=== PATIENT | female | born 1995 | race African-American/Black ===

== ENCOUNTER 2022-08-06 14:34 | Emergency (ER) | payer MEDICAID, OTHER ==
[~2022-08-06] VITALS: Ht 162.6 cm; Wt 80.0 kg
[~2022-08-06 14:34] MED LIST: PREN-88 PO
[2022-08-06 14:36] VITALS: BP 112/60
[2022-08-07] MEDS ORDERED: CEPH500C2 MT (11:20)
== END 2022-08-06 16:23 | disposition home or self-care (01) ==
LOC: ER 14:34
DX: Z04.89 Encounter for examination and observation for other specified reasons (principal)
CPT/HCPCS: 99283; Z7610

== ENCOUNTER 2022-08-06 17:39 | Emergency (ER) | payer MEDICAID ==
[~2022-08-06] VITALS: Ht 167.6 cm; Wt 75.0 kg
[2022-08-06] MEDS ORDERED: HALOPERIDOL LACTATE 5MG/ML VIAL IM ONE (19:15)
[2022-08-06] MEDS ORDERED: LORAZEPAM 2MG/ML CPJ IM ONE (19:15)
[2022-08-06 20:12] LABS: BASOPHILS % 0.4 % (0.0-2.0); HEMATOCRIT. 41.9 % (36.0-48.0); HEMOGLOBIN. 14.1 g/dL (12.0-16.0); LYMPHOCYTES % 29.6 % (20.0-50.0); MEAN CORPUSCULAR HEMOGLOBIN 32.6 pg (28.0-32.0); MEAN CORPUSCULAR VOLUME 96.9 fL (81.0-99.0); MEAN PLATELET VOLUME 8.5 fl (7.4-10.4); MONOCYTES % 6.7 % (2.0-8.0); NEUTROPHILS % 63.3 % (40.0-76.0); PLATELET 277 x1000/uL (130-400); RED BLOOD CELL COUNT 4.32 mill/uL (4.2-5.4); RED CELL DISTRIBUTION WIDTH 13.4 % (11.6-14.6)
[2022-08-06 20:20] LABS: CHLORIDE 103 mEq/L (98-107)
[2022-08-06 20:26] LABS: ETHANOL BLOOD 277 mg/dL
[2022-08-06 20:38] LABS: CLARITY URINE CLOUDY (CLEAR); COLOR URINE YELLOW (YELLOW); KETONES URINE 1+ (NEGATIVE); LEUKOCYTE ESTERASE URINE TRACE (NEGATIVE); NITRITE URINE POSITIVE (NEGATIVE); OCCULT BLOOD URINE NEGATIVE (NEGATIVE); PROTEIN URINE 1+ (NEGATIVE); SPECIFIC GRAVITY URINE 1.028 (1.005-1.030); UROBILINOGEN URINE 0.2 E.U./dL (0.2-1.0)
[2022-08-06 20:54] LABS: *BARBITURATES SCREEN URINE NEGATIVE (NEGATIVE); *BENZODIAZEPINES SCREEN URINE NEGATIVE (NEGATIVE); *COCAINE SCREEN URINE NEGATIVE (NEGATIVE); METHADONE URINE SCREEN NEGATIVE (NEGATIVE); OPIATES URINE SCREEN NEGATIVE (NEGATIVE); PHENCYCLIDINE URINE SCREEN NEGATIVE (NEGATIVE)
[2022-08-06 21:02] LABS: *AMPHETAMINES SCREEN URINE PRESUMTIVE POSITIVE (NEGATIVE); CANNABINOID URINE SCREEN PRESUMTIVE POSITIVE (NEGATIVE)
[2022-08-06] MEDS ORDERED: LORAZEPAM 0.5MG TABLET PO ONE (22:45)
[2022-08-07] MEDS: CEPHALEXIN 250MG CAPSULE PO SCH ×2 (06:15→09:00)
[2022-08-07 10:00] VITALS: BP 108/56
[2022-08-07] MEDS ORDERED: CEPH500C2 MT (11:20)
== END 2022-08-07 15:40 | disposition home or self-care (01) ==
LOC: ER 17:39
DX: R45.851 Suicidal ideations (principal); N30.00 Acute cystitis without hematuria; Z20.822 Contact with and (suspected) exposure to COVID-19; Z86.59 Personal history of other mental and behavioral disorders
CPT/HCPCS: 36415; 80053; 80305; 80307; 80320; 80329; 81003; 81025; 85025; 87426; 96372; 99285; C9803; J1630; J2060; Z7610; G0480